=== PATIENT | female | born 2000 | race Asian ===

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

== ENCOUNTER 2019-01-25 22:49 | Emergency (ER) | payer OTHER, SELFPAY ==
--- NOTE | 2019-01-25 23:41 | RAD ---
2 views left humerus: 01/25/2019 COMPARISON: None HISTORY: Injury, trauma, pain FINDINGS: No fracture or dislocation. No radiopaque foreign body or subcutaneous gas. IMPRESSION: No acute findings.
--- NOTE | 2019-01-25 23:43 | RAD ---
4 views left elbow: 01/25/2019 COMPARISON: None HISTORY: Injury, trauma, pain FINDINGS: No fracture or dislocation. The lateral examination demonstrates no elbow joint effusion. A linear radiopaque structure is seen within the subcutaneous fat medial to the left humerus distally. IMPRESSION: No acute findings.
[2019-01-25] MEDS ORDERED: Bacitracin Zinc 1 Packet ONE (23:53)
== END 2019-01-26 00:15 | disposition home or self-care (01) ==
LOC: ERS 22:49
DX: S40.212A Abrasion of left shoulder, initial encounter (principal); V43.52XA Car driver injured in collision with other type car in traffic accident, initial encounter